=== PATIENT | female | born 1950 | race Hispanic/Latino ===

== ENCOUNTER 2017-09-17 10:36 | Emergency (ER) | payer OTHER, MEDICARE ==
[~2017-09-17] VITALS: Ht 154.9 cm; Wt 91.6 kg
[~2017-09-17 10:36] MED LIST: HYDROCODONE BI120 M1 PO; LOVENOX 4040 MG/0.4 SC; PROTONIX 20MG T20 MG PO; SINGULAIR10 MG PO
--- NOTE | 2017-09-17 11:08 | ED CARDIAC/CP/PALPITATIONS ---
History of Present Illness General Chief Complaint: Chest Pain Stated Complaint: CHEST PAINS Source: patient, friend Exam Limitations: no limitations Vital Signs & Intake/Output Vital Signs & Intake/Output Vital Signs Date Time Temp Pulse Resp B/P B/P Pulse O2 O2 Flow FiO2 Mean Ox Delivery Rate 09/17 1601 98.3 85 18 130/86 98 Room Air 09/17 1413 97.9 72 16 132/81 99 Room Air 09/17 1219 97.5 65 16 133/66 99 Room Air 09/17 1118 98 Room Air 09/17 1046 98.2 71 18 147/82 98 Room Air Allergies Coded Allergies: aspirin (SWELLING 09/17/17) cefazolin (HIVES 09/17/17) Reconcile Medications No Known Home Medications Triage Note: 66 YO FEMALE TO TRIAGE FROM [facility] OFFICE FOR CHEST PAIN. PT REPORTS WHILE AT THE OFFICE THIS AM GETTING HER BP CHECKED SHE STARTED WITH CHEST PAIN. DENIES PAIN AT THIS TIME. DENIES N/V. SKIN WARM/DRY. EKG COMEPTLED ON ARRIVAL. Triage Nurses Notes Reviewed? yes Onset: Abrupt Duration: minute(s): Timing: single episode today Quality/Severity: moderate, sharp Location: substernal Radiation: no radiation HPI: 66yo female with hx of asthma, obesity presents to ED sent in by primary care doctor for chest pain. Patient states that today during her routine physical she experienced episode of substernal chest pain. Patient states that while primary care doctor was checking her blood pressure in her left arm she experienced pain in left arm as well as sharp substernal chest pain which was nonradiating. Patient states that chest pain lasted for seconds to minutes, resolved after blood pressure reading was completed. Patient has no previous episode of chest pain in the past. Patient reports intermittent dyspnea, worse with exertion. She also reports intermittent palpitations, states the palpitations sometimes wake her up from sleeping. Patient reports associated anxiety with palpitations symptoms. Patient has had previous gastric bypass, she states she saw a jewel bearing grinder for clearance prior to surgery, has not had follow-up since. Her care doctor set her up with a outpatient cardiology follow -up with Dr. Martinez however recommended that she come here first for evaluation today. The patient denies abdominal pain, nausea, diaphoresis, syncope, recent illness, recent travel. (Irma LING,Angelica Craig) Past History Travel History Traveled to [place] past 21 day No Medical History Any Pertinent Medical History? see below for history Neurological: NONE EENT: allergies Cardiovascular: NONE Respiratory: asthma, obstructive sleep apnea Gastrointestinal: GERD Hepatic: NONE Renal: NONE Musculoskeletal: osteoarthritis Psychiatric: NONE Endocrine: NONE Blood Disorders: NONE Cancer(s): NONE HR SPECIALIST/Reproductive: NONE Pneumonia Vaccine: 04/26/11 Influenza Vaccine: 01/24/14 Surgical History Surgical History: gastric bypass Psychosocial History Who do you live with Mother What is your primary language Filipino Tobacco Use: Never used Family History Hx Contributory? No (Angelica Cabezas) Review of Systems Review of Systems Constitutional: Reports: no symptoms. EENTM: Reports: no symptoms. Respiratory: Reports: see HPI. Cardiovascular: Reports: see HPI. GI: Reports: no symptoms. Genitourinary: Reports: no symptoms. Musculoskeletal: Reports: no symptoms. Skin: Reports: no symptoms. Neurological/Psychological: Reports: no symptoms. Hematologic/Endocrine: Reports: no symptoms. Immunologic/Allergic: Reports: no symptoms. All Other Systems: Reviewed and Negative (Angelica Cabezas) Physical Exam Physical Exam General Appearance: well developed/nourished, no apparent distress, alert, awake Head: atraumatic, normal appearance Eyes: Bilateral: normal appearance. Ears, Nose, Throat: hearing grossly normal Neck: normal inspection, supple, full range of motion Respiratory: normal breath sounds, no respiratory distress, lungs clear Cardiovascular: regular rate/rhythm, normal peripheral pulses Peripheral Pulses: 2+ radial (R), 2+ radial (L) Gastrointestinal: normal bowel sounds, soft, non-tender, no organomegaly Back: normal inspection, normal range of motion Extremities: normal inspection, normal range of motion Neurologic/Psych: awake, alert, oriented x 3 Skin: intact, normal color, warm/dry Core Measures ACS in differential dx? Yes CVA/TIA Diagnosis No Sepsis Present: No Sepsis Focused Exam Completed? No (Angelica Cabezas) Progress Differential Diagnosis: AMI, atrial fibrillation, CHF/pulm edema, costochondritis, hyperventilation, musculoskeletal pain, myocarditis, pericarditis, pneumonia, pneumothorax, PSVT, pulmonary embolism, unstable angina Plan of Care: Orders Procedure Date/time Status TROPONIN LEVEL 09/17 1425 Complete EKG 09/17 1425 Active TROPONIN LEVEL 09/17 1107 Complete COMPREHENSIVE METABOLIC PANEL 09/17 1107 Complete CBC WITHOUT DIFFERENTIAL 09/17 1107 Complete EKG 09/17 1038 Active Laboratory Tests 09/17/17 1449: Troponin I < 0.01 09/17/17 1123: Anion Gap 6, Estimated GFR > 60, BUN/Creatinine Ratio 23.8, Glucose 92, Calcium 9.4, Total Bilirubin 0.7, AST 25, ALT 29, Alkaline Phosphatase 63, Troponin I < 0.01, Total Protein 6.9, Albumin 4.1, Globulin 2.8, Albumin/Globulin Ratio 1.5, CBC w Diff NO MAN DIFF REQ, RBC 4.22, MCV 94.7, MCH 32.2 H, MCHC 34.0, RDW 13.6 , MPV 8.4, Gran % 46.9, Lymphocytes % 37.6, Monocytes % 8.2, Eosinophils % 6.6 H, Basophils % 0.7, Absolute Granulocytes 2.2, Absolute Lymphocytes 1.7, Absolute Monocytes 0.4, Absolute Eosinophils 0.3, Absolute Basophils 0 EKG is in sinus rhythm, troponin enzyme is negative. Given onset of chest pain symptoms prior to arrival Will obtain repeat set in 3 hours. Patient has no chest pain at this time, she is in no acute distress. Chest x-ray shows possibility of left-sided pneumonia, patient has no cough, fever, leukocytosis, hypoxia. There is a low suspicion for pneumonia at this time. Repeat EKG is unchanged from previous study. Second troponin enzyme is negative. Patient is currently chest pain-free. Low suspicion for acute coronary syndrome based on these findings. Patient follow-up with cardiology as scheduled, she was given strict return precautions. The diagnosis of pulmonary embolism was considered however is a low suspicion for PE based on the patient's current presentation, no tachycardia, no hemoptysis, no unilateral leg swelling, chest pain only lasted for minutes. The patient agrees and understands the plan of care. The patient was discussed with Dr. Mckee who agrees with this plan. Diagnostic Imaging: Viewed by Me: Radiology Read. Discussed w/RAD: Radiology Read. Radiology Impression: PATIENT: ZAK MERAZ PRESENT AGE: 66 PATIENT ACCOUNT NO: [id number] : 50 LOCATION: [facility] ORDERING PHYSICIAN: Angelica LING SERVICE DATE: 09/17/17 EXAM TYPE: RAD - XRY-CHEST XRAY, TWO VIEWS EXAMINATION: XR CHEST CLINICAL INFORMATION: Chest pain COMPARISON: 10/18/2014 TECHNIQUE: 2 views of the chest were obtained. FINDINGS: There are some minimal patchy markings present at the left lung base which could represent an early infiltrate. The heart size is normal. There is no evidence of CHF. No pleural effusions are seen. Clips are noted in the gallbladder fossa. The bony thorax demonstrates mild degenerative changes in the spine without gross compression fractures. IMPRESSION: Possible subtle left lower lobe infiltrate. DICTATED BY: Mervin Fulton MD DATE/TIME DICTATED:09/17/171139 INFANT TODDLER LEAD TEACHER:GENARO DATE/TIME TRANSCRIBED:09/17/171139 CONFIDENTIAL, DO NOT COPY WITHOUT APPROPRIATE AUTHORIZATION. <Electronically signed in Other Vendor System> SIGNED BY: Mervin Fulton MD 09/17/17 1382 Initial ED EKG: sinus rhythm @70bpm, nonspecific ST changes Prior EKG: unchanged (07/04/14) (Irma LING,Angelica Craig) Departure Departure Disposition: HOME OR SELF CARE Condition: Stable Clinical Impression Primary Impression: Chest pain Qualifiers: Chest pain type: unspecified Qualified Code: R07.9 - Chest pain, unspecified Referrals: Bhumika Page APRN Additional Instructions: As discussed, follow-up with the jewel bearing grinder as scheduled. If you have any worsening symptoms or other concerns please return to the emergency department. Please note that there might be incidental findings in your evaluation that are unrelated to the current emergency department visit. Please notify your primary care doctor about this emergency department visit in order to obtain and review all of the testing performed so that these incidental findings can be monitored as needed. If you had an x-ray performed, please understand that some fractures may not be seen on the initial set of x-rays. If your symptoms persist you might need a repeat set of x-rays to check for such a fracture. If you had a laceration evaluated, please understand that foreign bodies such as glass or wood may not be visible to the naked eye or on plain x-rays. If the wound becomes red, swollen, increasingly more painful or if there is any drainage from the wound, please have it reevaluated by a physician for the possibility of a retained foreign body. If you're unable to follow up as outlined in the discharge instructions please return to the emergency department. Thank you for choosing the [facility] Emergency Department for your care. It was a pleasure to serve you today. Departure Forms: Customer Survey General Discharge Information Prescriptions: Current Visit Scripts No Known Home Medications (Angelica Cabezas) PA/SPECIAL EVENTS DIRECTOR Co-Sign Statement Statement: ED Attending supervision documentation- [X] I saw and evaluated the patient. I have also reviewed all the pertinent lab results and diagnostic results. I agree with the findings and the plan of care as documented in the PA's/SPECIAL EVENTS DIRECTOR's documentation. [X] I have reviewed the ED Record and agree with the PA's/SPECIAL EVENTS DIRECTOR's documentation. [] Additions or exceptions (if any) to the PAs/SPECIAL EVENTS DIRECTOR's note and plan are summarized below: [] (Rafi MCFARLAND,Flavio Kurtz) Critical Care Note Critical Care Note Critical Care Time: non-applicable (Angelica Cabezas)
[2017-09-17 11:39] LABS: ABSOLUTE BASOPHIL COUNT 0 /CUMM (0.0-0.2); ABSOLUTE EOSINOPHIL COUNT 0.3 /CUMM (0.0-0.7); ABSOLUTE GRANULOCYTE CT 2.2 /CUMM (1.4-6.5); ABSOLUTE LYMPH COUNT 1.7 /CUMM (1.2-3.4); ABSOLUTE MONOCYTE COUNT 0.4 /CUMM (0.10-0.60); BASOPHIL % 0.7 % (0.0-2.0); EOSINOPHIL % 6.6 % (0-5); GRANULOCYTE % 46.9 % (42.2-75.2); MEAN CORPUSCULAR HGB 32.2 PG (27.0-31.0); MEAN CORPUSCULAR VOLUME 94.7 FL (81.0-99.0); MEAN PLATELET VOLUME 8.4 FL (7.4-10.4); PLATELET COUNT 224 /CUMM (130-400); RBC DISTRIBUTION WIDTH 13.6 % (11.5-14.5); RED BLOOD CELL CT 4.22 /CUMM (4.20-5.40); WHITE BLOOD CELL COUNT 4.6 /CUMM (4.8-10.8)
--- NOTE | 2017-09-17 11:59 | RADIOLOGY REPORT ---
EXAMINATION: XR CHEST CLINICAL INFORMATION: Chest pain COMPARISON: 10/18/2014 TECHNIQUE: 2 views of the chest were obtained. FINDINGS: There are some minimal patchy markings present at the left lung base which could represent an early infiltrate. The heart size is normal. There is no evidence of CHF. No pleural effusions are seen. Clips are noted in the gallbladder fossa. The bony thorax demonstrates mild degenerative changes in the spine without gross compression fractures. IMPRESSION: Possible subtle left lower lobe infiltrate.
[2017-09-17 16:01] VITALS: BP 130/86
== END 2017-09-17 16:02 ==
LOC: ERH 10:36
PROVIDERS: Physician Assistant
DX: R07.89 Other chest pain (principal)
CPT/HCPCS: 71046; 93005; 93010